=== PATIENT | male | born 2000 | race American Indian/Alaskan Native ===

== ENCOUNTER 2020-08-03 15:52 | Emergency (ER) | payer SELFPAY ==
[~2020-08-03] VITALS: Ht 170.2 cm; Wt 57.1 kg
== END 2020-08-03 17:46 | disposition home or self-care (01) ==
LOC: ED 15:52
DX: S42.021A Displaced fracture of shaft of right clavicle, initial encounter for closed fracture (principal); S50.811A Abrasion of right forearm, initial encounter; V00.131A Fall from skateboard, initial encounter; F17.200 Nicotine dependence, unspecified, uncomplicated
CPT/HCPCS: 73000; 90471; 90715; 99283-25; A9270

== ENCOUNTER 2020-08-12 05:53 | Day surgery (SDC) | payer OTHER ==
--- NOTE | 2020-08-10 13:47 | NUR ---
TRYED TO REACH PATIENT AT NO ANSWER. CALLED X [address] HERNANDEZ OFFICE AND EXPLAINED THAT COULD NOT REACH PATIENT AT THE ABOVE NUMBER AND ASKED IF THEY HAD A DIFFERENT NUBER TO REACH PT WITH. THEY DID NOT EITHER. THIS AIRPLANE FLIGHT ATTENDANT LOOKED IN PATIENTS ED RECORD TO SEE IF ANY NUMBERS FOR BACK UP NONE AVAILABLE. PATIENT DID COME TO THE HOSPITAL THIS AM FOR HIS RAPID COVID. WILL TRY TO CALL PATIENT AGAIN TODAY AND SATURDAY IF PATIENT CAN NOT BE REACHED TODAY.
--- NOTE | 2020-08-11 09:04 | NUR ---
PT LEFT MESSAGE ON PHONE OF EDITOR NEWS OFFICE THAT HE WOULD ANSWER HIS PHONE WHEN I CALLED HIM. COMPLETED PHONE PRE ADMIT THIS AM. ARRIVAL TIME GIVE TO PT.
[~2020-08-12] VITALS: Ht 170.2 cm; Wt 57.0 kg
[2020-08-12] MEDS ORDERED: HYDROCODON-ACE1 EA11 PO (09:23)
--- NOTE | 2020-08-12 09:33 | NUR ---
08/12/20 0933 Rigoberto,Renita 3541 PT ARRIVED TO PACU ON 6L, VSS. PT NONAROUSABLE WITH ORAL AIRWAY IN PLACE.
--- NOTE | 2020-08-12 10:07 | NUR ---
CHECKED ON PT-VERY ENGROSSED IN VIDEO GAME ON HIS PHONE. COULD NOT MAKE EYE CONTACT WITH PT. GAVE BLESSING, WILL FOLLOW NEEDED
--- NOTE | 2020-08-12 10:29 | NUR ---
PATIENT ARRIVED BACK TO DAY SURGERY FROM PACU. REPORT RECIEVED FROM NICK BRIGHT. PATIENT DROWSY BUT AROUSABLE AND ABLE TO RESPOND TO QUESTIONS. VITAL SIGNS STABLE. PATIENT HAS DRESSING ON RIGHT SHOULDER, THAT IS CLEAN, DRY, AND INTACT. PATIENT REPORTS PAIN 6/10 BUT INSISTS THAT TOLERABLE LEVEL OF PAIN IS 8/10. PATIENT REQUESTED HEAD OF BED TO BE RAISED AND IS CURRENTLY EATING APPLESAUCE AND VENECIA CRACKERS AND TOLERATING SIPS OF WATER. DENIES NAUSEA AT THIS TIME.
--- NOTE | 2020-08-12 12:34 | NUR ---
PATIENT AMBULATED TO BATHROOM, STEADY ON FEET. REPORTS PAIN 0/10. IV REMOVED AND WITHIN NORMAL LIMITS. PATIENT TO GET DRESSED AND WILL BEGIN DISCHARGE INSTRUCTIONS.
--- NOTE | 2020-08-12 12:45 | NUR ---
CALLED AND NOTIFIED THAT PATIENT IS REQUESTING TO SMOKE MARIJUANA FOR PAIN CONTROL INSTEAD OF TAKING NARCOTICS. THEN VERBALIZED TO PATIENT HE HAS A PRESCRICPTION FOR PAIN MEDICATION AND PROVIDED EDUCATION ON THE EFFECTS OF RESPIRATORY DEPRESSANTS, ESPECIALLY AFTER RECIEVING ANESTHESIA. PATIENT VERBALIZED UNDERSTANDING.
--- NOTE | 2020-08-12 12:59 | NUR ---
DISCUSSED DISCHARGE INSTRUCTIONS WITH PATIENT. PATIENT HAD PREVIOUSLY EXPRESSED WANTING TO USE MARIJUANA WITH PAIN MEDICATIONS OR IN PLACE OF THEM. DISCUSSED MATTER WITH DISCHARGE TEACHING. STRONGLY ENCOURAGED PATIENT NOT TO MIX NARCOTICS WITH MARIJUANA AND REASONS WHY, PATIENT VERBALIZED UNDERSTANDING. PATIENT AMBULATED TO FRONT ENTRANCE FOR DISCHARGE WITH NICK DAUGHERTY.
--- NOTE | 2020-08-15 07:36 | OR ---
[facility] [address] [place], [place] [address] Signed DATE OF OPERATION: 08/12/2020 SURGEON: Ivanna Paul MD PREOPERATIVE DIAGNOSIS: Midshaft clavicle fracture, right displaced. POSTOPERATIVE DIAGNOSIS: Midshaft clavicle fracture, right displaced. PROCEDURE PERFORMED: Open reduction and internal fixation of right clavicle. OIL RECOVERY OPERATOR: Philomena Carter PA-C, Philomena was present and critical for all portions of procedure. ANESTHESIA: General. BLOOD LOSS: 100 mL. IMPLANT: Six hole Synthes clavicle plate with 7 screws. BRIEF HISTORY: Aramis is a 20-year-old gentleman who injured his shoulder in the fall fracturing his clavicle and displacing it over 100%. Risks and benefits of operative treatment were discussed with him. He elected to proceed. DESCRIPTION OF PROCEDURE: Once consent was obtained, he was taken to the operating room. After adequate anesthesia, he was placed in a beach chair position with a bump between the shoulder blades. The shoulder was prepped and draped in a standard sterile fashion. The clavicle was approached through a curvilinear incision at the anterior edge of the clavicle, carried down to the periosteum. The periosteum was split longitudinally and elevated anteriorly and posteriorly to allow good visualization of the fracture site. The fracture was 100% displaced still and was cleaned of all debris. It was then reduced with two clamps and held in position. This was checked using the image Electronically Signed By: IVANNA PAUL MD 08/15/20 0736 PATIENT NAME: ARAMIS JORDAN OPERATIVE REPORT DATE OF : [birth year] REPORT #: [id number] PHYSICIAN: IVANNA PAUL MD PCP: NO PRIMARY CARE PHYSICIAN REPORT IS CONFIDENTIAL AND NOT TO BE RELEASED WITHOUT AUTHORIZATION [facility] [address] [place] [id number] Signed intensifier and found to be well reduced. A single 2.7 screw was then placed from anterior to posterior to fixate the fracture perpendicular to the fracture line. The clamp was then removed and the 6-hole plate was fashioned to fit the superior surface of the clavicle and was held in position using a single screw. Again, position and reduction was checked and found to be satisfactory. The remaining screw holes were drilled and appropriate length screws were placed. Final radiographs showed excellent reduction of the fracture. The plate was anatomic and the screw lengths were good. The wound was copiously irrigated with normal saline. The periosteum and deltoid repaired using 2-0 Stratafix, subcutaneous tissue with 2-0 Stratafix, and skin with Steri-Strips and Super Glue. Wound was dressed with an Acticoat 7 dressing and he was awakened taken to recovery room in satisfactory condition. All sponge, needle, and instrument counts were correct. Ivanna Paul MD BA/JESSICA /[id number] Copies: ~ Electronically Signed By: IVANNA PAUL MD 08/15/20 0736 PATIENT NAME: ARAMIS JORDAN OPERATIVE REPORT DATE OF : [birth year] REPORT #: [id number] PHYSICIAN: IVANNA PAUL MD PCP: NO PRIMARY CARE PHYSICIAN REPORT IS CONFIDENTIAL AND NOT TO BE RELEASED WITHOUT AUTHORIZATION
== END 2020-08-12 12:50 | disposition home or self-care (01) ==
LOC: DS 05:53
PROVIDERS: ATTEND Specialist
PROC: 0PS904Z Reposition Right Clavicle with Internal Fixation Device, Open Approach (ICD-10-PCS; principal; 2020-08-12 08:45)
DX: S42.021A Displaced fracture of shaft of right clavicle, initial encounter for closed fracture (principal); G89.18 Other acute postprocedural pain; F17.210 Nicotine dependence, cigarettes, uncomplicated; F12.90 Cannabis use, unspecified, uncomplicated; V00.131A Fall from skateboard, initial encounter
CPT/HCPCS: 01630; 62320; 64999; 73000; 76942; A9270; C1713; J0690; J1100; J1885; J2001; J2250; J2405; J2704; J2795; J7121